=== PATIENT | male | born 1995 | race Asian ===

== ENCOUNTER 2016-09-11 14:45 | Emergency (ER) | payer OTHER ==
[~2016-09-11] VITALS: Ht 175.3 cm; Wt 65.8 kg
[2016-09-11 14:56] VITALS: TEMP 36.7; Ht 175.3 cm; Wt 65.8 kg
--- NOTE | 2016-09-11 15:29 | EMERGENCY ROOM VISIT NOTE ---
ED Visit Note First contact with patient: 15:12 CHIEF COMPLAINT: Tick bite HISTORY OF PRESENT ILLNESS: This patient noticed a tick embedded in the RIGHT axilla last evening. Was able to remove all of it. It had been on for about 2 hours. REVIEW OF SYSTEMS: Head: No headache, injury or neck pain. A Neck: No pain , stiffness, or swelling. Neurological: No headache, new changes in mental status, vertigo, focal weakness, numbness. Gastrointestinal: No abdominal pain , blood in stools, diarrhea, loss of appetite, nausea, or vomiting. General: No fever or chills, fatigue, loss of appetite, or significant recent weight gain or loss. PMH: The patient is healthy; there is no significant medical or surgical history. SOCIAL HISTORY: Patient lives at home. Non-smoker, occasional alcohol use. PHYSICAL EXAM: Vital Signs: Reviewed Nurse's notes. There is a small zone of inflammation and eccymosis around the spot where the tick was. The skin is otherwise clear. NEUROLOGICAL: Alert and cooperative. Sensory and motor functions grossly intact. MEDICAL DECISION MAKING: Patient was seen and evaluated by myself. Patient had move the tick in its entirety last evening. He was treated with a one-time dose of 200 mg doxycycline orally. He was educated on worrisome symptoms for return visit to the emergency part. Patient discharged home in good condition. In the evaluation and treatment of this patient, the following differential diagnoses were considered: Tick bite, cellulitis, foreign body, amongst others. DIAGNOSIS: Tick bite DISCHARGE INSTRUCTIONS & TREATMENT: Watch the area for signs of infection. Keep bacitracin on it for 2 days. Current/Historical Medications No Active Prescriptions or Reported Meds Allergies Coded Allergies: Penicillins (Verified Allergy, Unknown, RASH, 09/11/16) Vital Signs Date Time Temp Pulse Resp B/P Pulse Ox O2 Delivery O2 Flow Rate FiO2 09/11/16 15:34 91 18 130/77 96 09/11/16 14:56 36.7 102 18 129/86 97 Room Air Medications Administered Medications (Trade) Dose Ordered Sig/Whitney Route Start Time Stop Time Status Last Admin Dose Admin Doxycycline Hyclate (Vibramycin Cap) 200 mg ONE ONCE PO 09/11/16 15:30 09/11/16 15:31 DC 09/11/16 15:31 200 MG Departure Information Impression Primary Impression: Tick bite Dispostion Home / Self-Care Condition GOOD Prescriptions No Active Prescriptions or Reported Meds Referrals No Doctor, Assigned (PCP) Patient Instructions ED Bite Tick Abx Tx, My [facility] Additional Instructions Watch the area for signs of infection. Keep bacitracin on it for 2 days. Problem Qualifiers Primary Impression: Tick bite Encounter type: initial encounter Qualified Codes: W57.XXXA - Bitten or stung by nonvenomous insect and other nonvenomous arthropods, initial encounter
[2016-09-11] MEDS ORDERED: DOXYCYCLINE HYCLATE 100 MG CAP PO ONE (15:30)
[2016-09-11 15:34] VITALS: BP 130/77; PULSE 91; O2SAT 96
== END 2016-09-11 15:35 | disposition home or self-care (01) ==
LOC: C.EDB 14:47 → C.EDD 15:35
DX: S40.861A Insect bite (nonvenomous) of right upper arm, initial encounter (principal); W57.XXXA Bitten or stung by nonvenomous insect and other nonvenomous arthropods, initial encounter